=== PATIENT | male | born 1975 | race Caucasian/White ===

== ENCOUNTER 2017-05-08 00:51 | Inpatient (IN) | payer BC ==
[~2017-05-08] VITALS: Ht 180.3 cm; Wt 100.0 kg
[2017-05-08] VITALS (30 sets, daily range): BP systolic 86–113; BP diastolic 57–71; PULSE 53–76; RESP 14–28; TEMP 97.6; Ht 180.3 cm; Wt 100.0 kg
[2017-05-08] MEDS ORDERED: SOD CHLORIDE 0.9% 1,000 ML IV STA ×2 (01:11)
[2017-05-08] MEDS ORDERED: ONDANSETRON 4 MG INJ IV STA (01:20)
[2017-05-08] MEDS ORDERED: ONDANSETRON 4 MG INJ ONE (01:21)
[2017-05-08] MEDS ORDERED: HALOPERIDOL 5 MG INJ ONE (01:27)
[2017-05-08] MEDS ORDERED: LORAZEPAM 2 MG INJ ONE (01:27)
[2017-05-08] MEDS ORDERED: DIPHENHYDRAMINE 50 MG INJ ONE (01:27)
[2017-05-08] MEDS ORDERED: LORAZEPAM 2 MG INJ IV ONE ×3 (01:30→03:00)
[2017-05-08] MEDS ORDERED: OLANZAPINE 10 MG VIAL IM ONE (01:30)
--- NOTE | 2017-05-08 01:43 | ERD ---
ER Documentation Chief Complaint Date/Time DATE: 05/08/17 TIME: 01:42 Chief Complaint found down on sidewalk flailing, +ETOH, uncooperative w/ verbal comands HPI 41-year-old male brought in by police after he was found lying on the sidewalk uncooperative and belligerent. Patient smelled of alcohol. Patient does admit he is bipolar but is unable to provide any other history given his level of intoxication. ROS Limited secondary to clinical condition/intoxication Allergies Allergies: Coded Allergies: No Known Drug Allergies (Verified Allergy, Unknown, 05/08/17) PMhx/Soc Unable to obtain Hx Psychiatric Problems: Yes (Bipolar disorder) FmHx Family History: other (Unable to obtain) Physical Exam Vitals Vital Signs Date Time Temp Pulse Resp B/P Pulse Ox O2 Delivery O2 Flow Rate FiO2 05/08/17 06:00 97.3 98 16 105/82 100 Mechanical Ventilator 05/08/17 05:50 97 17 100 40 05/08/17 05:45 97.3 99 16 102/74 100 Mechanical Ventilator 05/08/17 05:30 97.3 101 16 105/66 100 Mechanical Ventilator 05/08/17 05:15 97.3 102 16 117/81 100 Mechanical Ventilator 05/08/17 05:10 101 15 100 50 05/08/17 05:00 97.3 101 16 122/88 100 Mechanical Ventilator 05/08/17 04:30 97.3 121 14 155/91 100 Mechanical Ventilator 05/08/17 04:15 97.3 117 14 135/99 100 Mechanical Ventilator 05/08/17 04:07 97.3 118 14 144/88 100 Mechanical Ventilator 05/08/17 03:55 120 14 130/93 100 Mechanical Ventilator 05/08/17 03:40 112 14 100 60 05/08/17 03:30 97.3 117 16 130/93 100 05/08/17 01:30 97.3 83 20 114/68 97 05/08/17 01:05 97.4 73 17 93/71 97 Physical Exam Const: Somnolent, flailing around in bed, belligerent, combative, disheveled Head: Atraumatic Eyes: Normal Conjunctiva, pupils mid size, PERRLA, EOMI ENT: Dry mucous membranes, poor dentition Neck: Full range of motion..~ No meningismus. Resp: Clear to auscultation bilaterally Cardio: Regular rate and rhythm, no murmurs Abd: Soft, non tender, non distended. Normal bowel sounds Skin: No petechiae or rashes Back: No midline or flank tenderness Ext: No cyanosis, or edema Neur: Somnolent, arousable, moving all extremities spontaneously, withdraws to pain in all 4 extremities, slurred speech Psych: Belligerent, agitated Result Diagram: 05/08/17 0130 05/08/17 0130 Results 24 hrs Laboratory Tests Test 05/08/17 01:30 05/08/17 02:55 White Blood Count 10.710^3/ul Red Blood Count 4.9910^6/ul Hemoglobin 15.6g/dl Hematocrit 46.0% Mean Corpuscular Volume 92.2fl Mean Corpuscular Hemoglobin 31.3pg Mean Corpuscular Hemoglobin Concent 33.9g/dl Red Cell Distribution Width 12.8% Platelet Count 35260^3/UL Mean Platelet Volume 10.0fl Neutrophils % 60.7% Lymphocytes % 27.4% Monocytes % 8.7% Eosinophils % 1.8% Basophils % 0.7% Nucleated Red Blood Cells % 0.0/100WBC Neutrophils # 6.510^3/ul Lymphocytes # 2.910^3/ul Monocytes # 0.910^3/ul Eosinophils # 0.210^3/ul Basophils # 0.110^3/ul Nucleated Red Blood Cells # 0.010^3/ul Sodium Level 145mmol/L Potassium Level 3.9mmol/L Chloride Level 104mmol/L Carbon Dioxide Level 21mmol/L Anion Gap 24 Blood Urea Nitrogen 5mg/dl Creatinine 0.93mg/dl Glucose Level 103mg/dl Calcium Level 9.1mg/dl Total Bilirubin 0.2mg/dl Direct Bilirubin 0.00mg/dl Indirect Bilirubin 0.2mg/dl Aspartate Amino Transf (AST/SGOT) 31IU/L Alanine Aminotransferase (ALT/SGPT) 41IU/L Alkaline Phosphatase 100IU/L Total Protein 7.6g/dl Albumin 4.9g/dl Globulin 2.70g/dl Albumin/Globulin Ratio 1.81 Ethyl Alcohol Level 241.0mg/dl Urine Color STRAW Urine Clarity CLEAR Urine pH 6.0 Urine Specific [place] 1.004 Urine Ketones NEGATIVEmg/dL Urine Nitrite NEGATIVEmg/dL Urine Bilirubin NEGATIVEmg/dL Urine Urobilinogen NEGATIVEmg/dL Urine Leukocyte Esterase NEGATIVELeu/ul Urine Hemoglobin NEGATIVEmg/dL Urine Glucose NEGATIVEmg/dL Urine Total Protein NEGATIVEmg/dl Urine Opiates Screen Negative Urine Barbiturates Negative Urine Amphetamines Screen Negative Urine Benzodiazepines Screen Negative Urine Cocaine Screen Negative Urine Cannabinoids Negative Current Medications Medications (Trade) Dose Ordered Sig/Yuliya Route PRN Reason Start Time Stop Time Status Last Admin Dose Admin Sodium Chloride 1,000 ml @ 1,000 mls/hr Q1H STAT IV 05/08/17 01:11 05/08/17 02:10 DC 05/08/17 01:36 Sodium Chloride (NS) 1,000 ml @ 1,000 mls/hr Q1H STAT IV 05/08/17 01:11 05/08/17 02:10 DC 05/08/17 01:36 Ondansetron HCl (Zofran Inj) 4 mg ONCE STAT IV 05/08/17 01:20 05/08/17 01:21 DC 05/08/17 01:35 Ondansetron HCl (Zofran Inj) 4 mg STK-MED ONCE .ROUTE 05/08/17 01:21 05/08/17 01:22 DC Diphenhydramine HCl (Benadryl) 50 mg STK-MED ONCE .ROUTE 05/08/17 01:27 05/08/17 01:28 DC Haloperidol (Haldol) 5 mg STK-MED ONCE .ROUTE 05/08/17 01:27 05/08/17 01:28 DC Lorazepam (Ativan) 2 mg STK-MED ONCE .ROUTE 05/08/17 01:27 05/08/17 01:28 DC Lorazepam (Ativan) 1 mg ONCE ONCE IV 05/08/17 01:30 05/08/17 01:31 DC 05/08/17 01:36 Olanzapine (Zyprexa) 10 mg ONCE ONCE IM 05/08/17 01:30 05/08/17 01:31 DC 05/08/17 01:51 Diphenhydramine HCl (Benadryl) 50 mg ONCE ONCE IV 05/08/17 03:00 05/08/17 03:01 DC 05/08/17 03:15 Lorazepam (Ativan) 1 mg ONCE ONCE IV 05/08/17 03:00 05/08/17 03:01 DC 05/08/17 03:15 Lorazepam (Ativan) 1 mg ONCE ONCE IV 05/08/17 03:00 05/08/17 03:01 DC 05/08/17 03:16 Ketamine HCl 200 mg 200 mg ONCE STAT IV 05/08/17 03:11 05/08/17 03:14 DC 05/08/17 03:50 Propofol 100 ml @ 0 mls/hr TITRATE ONCE IV 05/08/17 03:30 05/08/17 03:31 DC 05/08/17 03:51 Propofol 100 ml @ ud STK-MED ONCE .ROUTE 05/08/17 03:31 05/08/17 03:32 DC Dexmedetomidine HCl/Sodium Chloride (Precedex/NS) 50 ml @ 5 mls/hr TITRATE IV 05/08/17 05:30 05/08/17 05:58 Procedures/MDM Initiation of Seclusion/Restraint time of evaluation 0130 (correlate with nursing orders) This patient was placed in Seclusion/Restraint because: Danger to self, danger to others Less restrictive measures of verbal interventions/reminders, security standby, medications offered/given, nursing interventions based on Face to Face assessment findings, alteration to physical environment/reduce stimuli were attempted prior to restraint and/or seclusion. I performed a face to face assessment within one hour of the restraint/ seclusion at time 0230. Patients condition at assessment is: still agitated the restraints were continued. MDM Patients presented with altered mental status. Vitals were notable for borderline hypotension. 2 L IV fluid boluses were ordered. Patient maintaining airway. Based on EMS report and exam, patients AMS is likely related to alcohol or drug intoxication. I have a low suspicion for serious metabolic or electrolyte derangement, intracranial hemorrhage, acute infectious process, meningitis/encephalitis, or CVA. Multiple doses of Ativan were given with no improvement of his behavioral symptoms. He was also given Benadryl and Zyprexa. The patient remained consistently belligerent and a danger to himself despite being in restraints. He tried to chew his IV off. For the patient's own safety and for the safety of the staff, the patient was intubated and sedated. Propofol was started IV and maxed out with the patient still trying to pull at his medical equipment. Precedex was added. Patient will be admitted to the ICU. UDS is negative. I have a suspicion that the patient use some synthetic drugs in addition to alcohol. His labs are notable for likely metabolic acidosis due to lactic acidosis secondary to all his agitation and fighting. I have a low suspicion for sepsis. Critical Care Time: 45 minutes Treatments/Evaluations: Close monitoring and treatment of unstable vital signs, cardiorespiratory, and neurologic status, while maintaining tight balance of fluid, respiratory, and cardiac interventions. This time includes discussing the case with the patient and the patients family. This time does not include all procedures stated elsewhere in this record. This time also includes reviewing old records, labs and radiological studies. This time includes examining and re-examining the patient. Additionally, this time also includes arranging care with admitting and consulting physicians. Departure Diagnosis: Primary Impression: Alcoholic intoxication Complication of substance-induced condition: with unspecified complication Qualified Code: F10.129 - Alcoholic intoxication, with unspecified complication Additional Impression: Acute encephalopathy Condition: Serious ALEXANDER TORRES MD May 08, 2017 01:43
[2017-05-08 02:05] LABS: ADD SCAN DIFF NO
[2017-05-08 02:06] LABS: BASOPHIL # 0.1 10^3/ul (0.0-0.1); BASOPHILS % 0.7 % (0.0-2.0); EOSINOPHILS # 0.2 10^3/ul (0.0-0.5); EOSINOPHILS % 1.8 % (0.0-7.0); HEMOGLOBIN 15.6 g/dl (14.0-18.0); LYMPHOCYTES # 2.9 10^3/ul (0.8-2.9); LYMPHOCYTES % 27.4 % (15.0-51.0); MEAN CORPUSCULAR HEMOGLOBIN 31.3 pg (29.0-33.0); MEAN CORPUSCULAR HGB CONC 33.9 g/dl (32.0-37.0); MEAN CORPUSCULAR VOLUME 92.2 fl (82.0-101.0); MONOCYTE # 0.9 10^3/ul (0.3-0.9); MONOCYTES % 8.7 % (0.0-11.0); NEUTROPHIL # 6.5 10^3/ul (1.6-7.5); NEUTROPHILS % 60.7 % (39.0-77.0); PLATELET COUNT 230 10^3/UL (140-415); RED BLOOD COUNT 4.99 10^6/ul (4.70-6.10); RED CELL DISTRIBUTION WIDTH 12.8 % (11.5-14.5); WHITE BLOOD COUNT 10.7 10^3/ul (4.8-10.8)
[2017-05-08 02:26] LABS: ALBUMIN 4.9 g/dl (3.3-4.9); ALBUMIN/GLOBULIN RATIO 1.81; BILIRUBIN,INDIRECT 0.2 mg/dl (0-1.1); BILIRUBIN,TOTAL 0.2 mg/dl (0.2-1.3); CALCIUM 9.1 mg/dl (8.4-10.2); CREATININE 0.93 mg/dl (0.61-1.24); POTASSIUM 3.9 mmol/L (3.5-5.1); TOTAL PROTEIN 7.6 g/dl (6.1-8.1)
[2017-05-08] MEDS ORDERED: DIPHENHYDRAMINE 50 MG INJ IV ONE (03:00)
[2017-05-08] MEDS ORDERED: KETAMINE 500 MG INJ IV STA (03:11)
[2017-05-08 03:28] LABS: ADD UMIC NO; UR ASCORBIC ACID NEGATIVE (NEGATIVE); UR BILIRUBIN (Dip) NEGATIVE (NEGATIVE); UR BLOOD (Dip) NEGATIVE (NEGATIVE); UR CLARITY CLEAR (CLEAR); UR COLOR STRAW (YELLOW); UR GLUCOSE (Dip) NEGATIVE (NEGATIVE); UR KETONES (Dip) NEGATIVE (NEGATIVE); UR LEUKOCYTE ESTERASE (Dip) NEGATIVE Leu/ul (NEGATIVE); UR NITRITE (Dip) NEGATIVE (NEGATIVE); UR SPECIFIC GRAVITY (Dip) 1.004 (1.003-1.030); UR TOTAL PROTEIN (Dip) NEGATIVE (NEGATIVE); UR UROBILINOGEN (Dip) NEGATIVE (NEGATIVE)
[2017-05-08] MEDS ORDERED: PROPOFOL 100 ML IV ONE (03:30)
[2017-05-08] MEDS ORDERED: PROPOFOL 100 ML ONE (03:31)
[2017-05-08 03:59] LABS: BARBITURATES Negative (NEGATIVE); CANNABINOIDS Negative (NEGATIVE)
[2017-05-08 04:04] LABS: BENZODIAZEPINES Negative (NEGATIVE); COCAINE Negative (NEGATIVE); OPIATES Negative (NEGATIVE)
--- NOTE | 2017-05-08 05:05 | RADRPT ---
PROCEDURE: CT Brain without. CLINICAL INDICATION: Altered mental status TECHNIQUE: A CT of the brain was performed utilizing axial sections from the skull base through th e vertex without contrast. The scan was reviewed in soft tissue brain and high frequency resolution bone algorithm windows. Images were reviewed on a high-resolution PACS workstation. The exam CTDI = 44.68 mGy, and the DLP = 720.23 mGy-cm. One or more of the following dose reduction techniques w ere used: Automated exposure control, adjustment of the mA and / or kV according to patient size, o r use of iterative reconstruction technique. COMPARISON: None available FINDINGS: The ventricles are normal in size and midline in position. There is no intracranial hemorrhage, mid line shift, or mass effect. No abnormal extra-axial fluid collections are identified. The valdes-whi te differentiation is well preserved. The basal cisterns are patent. The posterior fossa is unrema rkable. The visualized portions of the orbits are unremarkable. The paranasal sinuses and mastoid air cells are clear. No calvarial fracture or abnormality are identified. The soft tissues are unremarkable . IMPRESSION: Unremarkable CT of the brain. RPTAT: HH .Marissa Kenny MD, MD Date Time Electronically viewed and signed by .Marissa Kenny MD, on 05/08/2017 05:04 .G/
--- NOTE | 2017-05-08 05:55 | RADRPT ---
PROCEDURE: XR Chest. CLINICAL INDICATION: Respiratory failure TECHNIQUE: Portable single view of the chest COMPARISON: None. FINDINGS: Endotracheal tube is seen in good position. There is mild cardiomegaly. Mild pulmonary vascular co ngestion is seen with slight probable interstitial edema. Left lower lobe atelectasis or infiltrate . No large effusion. No definite acute bony abnormality. IMPRESSION: Endotracheal tube in good position. Probable at least mild congestive heart failure. Left lower lo be infiltrate cannot be excluded. RPTAT: [facility] [place] Physician Date Time Electronically viewed and signed by [place] Physician on 05/08/2017 05:54 LE/
[2017-05-08] MEDS: DEXMEDETOMIDINE HCL 200 MCG in SOD CHLORIDE 0.9% 48 ML IV SCH ×2 (05:58→14:26)
[2017-05-08] MEDS ORDERED: ROCURONIUM 50 MG INJ ONE (07:00)
[2017-05-08] MEDS ORDERED: KETAMINE 500 MG INJ ONE (07:00)
[2017-05-08 07:12] LABS: AADO2 Arterial 135.4 mmHg (7.0-24.0); Allen Test ACCEPTAB; Arterial Base Excess -5.6 mmol/L (-3.0-3); Arterial COHb 1.8 % (0.0-3.0); Arterial Fraction of Oxyhgb 96.7 % (93.0-99.0); Arterial HCO3 20.7 mmol/L (22.0-26.0); Arterial MetHb 0.4 % (0.0-1.5); Arterial Total Hemglobin 16.7 g/dl (12.0-18.0); MODE VENT - AC
--- NOTE | 2017-05-08 07:29 | HP ---
Date/Time of Note Date/Time of Note DATE: 05/08/17 TIME: 07:15 Assessment/Plan VTE Prophylaxis VTE Prophylaxis Intervention: SCD's Assessment/Plan Assessment/Plan 41 yo M found on the street passed out and intubated for extreme agitation 1. Toxic encephalopathy : likely 2/2 a combination of multisubstance abuse including alcohol 2. Endotracheal intubation for airway protection 3. Hx of bipolar d/o 4. Incomplete history PLAN: ICU admit / vent mgt / pulm consult / NGT IVF / banana bag / sedation / once sedation weaning commences, start librium for withdrawal / PRN ativan PRN pain control/ antiemetics/ antipyretics/ supportive care further interventions per clinical course HPI/ROS Admit Date/Time Admit Date/Time 05/08/17 Hx of Present Illness PRESENTING COMPLAINT: altered mentation HISTORY OF PRESENTING COMPLAINT: This is a 41-year-old male per report who was found on the side of the street passed out and was brought to the emergency room by paramedics. However when he arrived in the emergency room he became very aggressive and combative, quite agitated and despite multiple medications could not be calmed down. The emergency room physician ended up having to intubate him and even despite sedation is still moving, and requiring restraints. He did have one episode of vomiting per report, but he was said not likely to have aspirated although this cannot be ruled out. No further history is obtainable. His urine tox screen was negative, but his alcohol levels were elevated, and patient likely took some other substance that is contributing to his severe aggressiveness and combativeness. ROS Subjective hx not possible: pt critical status PMH/Family/Social Past Medical History * Bipolar d/o per notes Medical History: other (unk) Past Surgical History Past Surgical Hx: other (unk) Social History Alcohol Use: heavy (unknown) Smoking Status: Unknown if ever smoked Drug Use: other Exam/Review of Systems Vital Signs Vitals Vital Signs Date Time Temp Pulse Resp B/P Pulse Ox O2 Delivery O2 Flow Rate FiO2 05/08/17 07:00 98.1 75 16 100/71 99 05/08/17 06:15 Mechanical Ventilator 05/08/17 05:50 40 Exam Constitutional: other (intubated and sedated), No alert, No oriented Head: normocephalic ENMT: intubated Respiratory: diminished breath sounds, No wheezing Cardiovascular: regular rate and rhythm Gastrointestinal: bowel sounds, distended (mildly), soft Extremities: No edema Neurological: other (sedated but still requiring restraints) Labs Result Diagram: 05/08/17 01305/08/17 013 Medications Medications Current Medications Dexmedetomidine HCl/Sodium Chloride (Precedex/NS) 50 ml @ 5 mls/hr TITRATE IV Last administered on 05/08/17t 05:58; Admin Dose 5 MLS/HR; Start 05/08/17 at 05:30 Procedures Procedures Laboratory Tests Test 05/08/17 01:30 05/08/17 02:55 05/08/17 05:17 White Blood Count 10.710^3/ul Red Blood Count 4.9910^6/ul Hemoglobin 15.6g/dl Hematocrit 46.0% Mean Corpuscular Volume 92.2fl Mean Corpuscular Hemoglobin 31.3pg Mean Corpuscular Hemoglobin Concent 33.9g/dl Red Cell Distribution Width 12.8% Platelet Count 74333^3/UL Mean Platelet Volume 10.0fl Neutrophils % 60.7% Lymphocytes % 27.4% Monocytes % 8.7% Eosinophils % 1.8% Basophils % 0.7% Nucleated Red Blood Cells % 0.0/100WBC Neutrophils # 6.510^3/ul Lymphocytes # 2.910^3/ul Monocytes # 0.910^3/ul Eosinophils # 0.210^3/ul Basophils # 0.110^3/ul Nucleated Red Blood Cells # 0.010^3/ul Sodium Level 145mmol/L Potassium Level 3.9mmol/L Chloride Level 104mmol/L Carbon Dioxide Level 21mmol/L Anion Gap 24 Blood Urea Nitrogen 5mg/dl Creatinine 0.93mg/dl Glucose Level 103mg/dl Calcium Level 9.1mg/dl Total Bilirubin 0.2mg/dl Direct Bilirubin 0.00mg/dl Indirect Bilirubin 0.2mg/dl Aspartate Amino Transf (AST/SGOT) 31IU/L Alanine Aminotransferase (ALT/SGPT) 41IU/L Alkaline Phosphatase 100IU/L Total Protein 7.6g/dl Albumin 4.9g/dl Globulin 2.70g/dl Albumin/Globulin Ratio 1.81 Ethyl Alcohol Level 241.0mg/dl Urine Color STRAW Urine Clarity CLEAR Urine pH 6.0 Urine Specific [place] 1.004 Urine Ketones NEGATIVEmg/dL Urine Nitrite NEGATIVEmg/dL Urine Bilirubin NEGATIVEmg/dL Urine Urobilinogen NEGATIVEmg/dL Urine Leukocyte Esterase NEGATIVELeu/ul Urine Hemoglobin NEGATIVEmg/dL Urine Glucose NEGATIVEmg/dL Urine Total Protein NEGATIVEmg/dl Urine Opiates Screen Negative Urine Barbiturates Negative Urine Amphetamines Screen Negative Urine Benzodiazepines Screen Negative Urine Cocaine Screen Negative Urine Cannabinoids Negative Blood Gas Specimen Source Blood arterial Arterial Blood Date Drawn 05/08/2017 5:23:32 AM Arterial Blood pH (Temp corrected) 7.299 Arterial Blood pCO2 (Temp correct) 43.2mmhg Arterial Blood pO2 (Temp corrected) 172.5mmHG Arterial Blood HCO3 20.7mmol/L Arterial Blood Base Excess -5.6mmol/L Arterial Blood Oxygen Saturation 98.9mmHG Brodie Test ACCEPTAB Arterial Blood Gas Puncture Site Right Radial Arterial Blood Carboxyhemoglobin 1.8% Arterial Blood Methemoglobin 0.4% Blood Gas A-a O2 Differential 135.4mmHg Oxyhemoglobin Percent 96.7% Total Hemoglobin 16.7g/dl Blood Gas Temperature 37.0C Blood Gas Respiration Rate 14.0 Blood Gas Actual Respiration Rate 15 Blood Gas Modality VENT - AC FiO2 50.0% Blood Gas Tidal Volume 550.0mL Blood Gas Low PEEP Setting 5.0cmH2O Blood Gas Inspiratory Pressure 18.0 Blood Gas Critical Value Read Back Agapito TORRES MD Blood Gas Notified Whom AA Blood Gas Notified Time 05/08/2017 5:38:23 AM ER INTERVENTIONS Medications (Trade) Dose Ordered Sig/Yuliya Route PRN Reason Start Time Stop Time Status Last Admin Dose Admin Sodium Chloride 1,000 ml @ 1,000 mls/hr Q1H STAT IV 05/08/17 01:11 05/08/17 02:10 DC 05/08/17 01:36 1,000 MLS/HR Sodium Chloride (NS) 1,000 ml @ 1,000 mls/hr Q1H STAT IV 05/08/17 01:11 05/08/17 02:10 DC 05/08/17 01:36 1,000 MLS/HR Ondansetron HCl (Zofran Inj) 4 mg ONCE STAT IV 05/08/17 01:20 05/08/17 01:21 DC 05/08/17 01:35 4 MG Ondansetron HCl (Zofran Inj) 4 mg STK-MED ONCE .ROUTE 05/08/17 01:21 05/08/17 01:22 DC Diphenhydramine HCl (Benadryl) 50 mg STK-MED ONCE .ROUTE 05/08/17 01:27 05/08/17 01:28 DC Haloperidol (Haldol) 5 mg STK-MED ONCE .ROUTE 05/08/17 01:27 05/08/17 01:28 DC Lorazepam (Ativan) 2 mg STK-MED ONCE .ROUTE 05/08/17 01:27 05/08/17 01:28 DC Lorazepam (Ativan) 1 mg ONCE ONCE IV 05/08/17 01:30 05/08/17 01:31 DC 05/08/17 01:36 1 MG Olanzapine (Zyprexa) 10 mg ONCE ONCE IM 05/08/17 01:30 05/08/17 01:31 DC 05/08/17 01:51 10 MG Diphenhydramine HCl (Benadryl) 50 mg ONCE ONCE IV 05/08/17 03:00 05/08/17 03:01 DC 05/08/17 03:15 50 MG Lorazepam (Ativan) 1 mg ONCE ONCE IV 05/08/17 03:00 05/08/17 03:01 DC 05/08/17 03:15 1 MG Lorazepam (Ativan) 1 mg ONCE ONCE IV 05/08/17 03:00 05/08/17 03:01 DC 05/08/17 03:16 1 MG Ketamine HCl 200 mg 200 mg ONCE STAT IV 05/08/17 03:11 05/08/17 03:14 DC 05/08/17 03:50 200 MG Propofol 100 ml @ 0 mls/hr TITRATE ONCE IV 05/08/17 03:30 05/08/17 03:31 DC 05/08/17 03:51 6 MLS/HR Propofol 100 ml @ ud STK-MED ONCE .ROUTE 05/08/17 03:31 05/08/17 03:32 DC Dexmedetomidine HCl/Sodium Chloride (Precedex/NS) 50 ml @ 5 mls/hr TITRATE IV 05/08/17 05:30 05/08/17 05:58 5 MLS/HR PROCEDURE: CT Brain without. CLINICAL INDICATION: Altered mental status TECHNIQUE: A CT of the brain was performed utilizing axial sections from the skull base through the vertex without contrast. The scan was reviewed in soft tissue brain and high frequency resolution bone algorithm windows. Images were reviewed on a high-resolution PACS workstation. The exam CTDI = 44.68 mGy, and the DLP = 720.23 mGy-cm. One or more of the following dose reduction techniques were used: Automated exposure control, adjustment of the mA and / or kV according to patient size, or use of iterative reconstruction technique. COMPARISON: None available FINDINGS: The ventricles are normal in size and midline in position. There is no intracranial hemorrhage, midline shift, or mass effect. No abnormal extra- axial fluid collections are identified. The valdes-white differentiation is well preserved. The basal cisterns are patent. The posterior fossa is unremarkable. The visualized portions of the orbits are unremarkable. The paranasal sinuses and mastoid air cells are clear. No calvarial fracture or abnormality are identified. The soft tissues are unremarkable. IMPRESSION: Unremarkable CT of the brain. RPTAT: HH .Marissa Kenny MD, MD Date Time Electronically viewed and signed by .Marissa Kenny MD, MD on 05/08/2017 05 :04 .G/ CC: ALEXANDER TORRES MD PROCEDURE: XR Chest. CLINICAL INDICATION: Respiratory failure TECHNIQUE: Portable single view of the chest COMPARISON: None. FINDINGS: Endotracheal tube is seen in good position. There is mild cardiomegaly. Mild pulmonary vascular congestion is seen with slight probable interstitial edema. Left lower lobe atelectasis or infiltrate. No large effusion. No definite acute bony abnormality. IMPRESSION: Endotracheal tube in good position. Probable at least mild congestive heart failure. Left lower lobe infiltrate cannot be excluded. RPTAT: [facility] [place], Physician Date Time Electronically viewed and signed by [place], Physician on 05/08/2017 05 :54 LE/ CC: ALEXANDER TORRES MD, BOLATITO M. May 08, 2017 07:26
[2017-05-08 08:35] LABS: INR 1.03; PARTIAL THROMBOPLASTIN TIME 28.7 Sec (25.0-35.0); PROTIME 13.5 Sec (12.2-14.2); PT RATIO 1.1
[2017-05-08 08:41] LABS: CREATINE KINASE 187 IU/L (23-200)
[2017-05-08 08:44] LABS: MAGNESIUM 1.7 mg/dl (1.7-2.5); PHOSPHORUS 3.5 mg/dl (2.5-4.9)
[2017-05-08 08:58] LABS: CK-MB 1.35 ng/ml (0.0-2.4); TROPONIN-I < 0.012 ng/ml (0.00-0.12)
[2017-05-08] MEDS: MULTIVITAMINS 10 ML, THIAMINE 100 MG, FOLIC ACID 1 MG in SOD CHLORIDE 0.9% 1,000 ML IVPB SCH (09:25)
[2017-05-08] MEDS: DEXTROSE 5%-0.45% NACL 1,000 ML IV SCH ×3 (09:52→23:30)
[2017-05-08] MEDS: FAMOTIDINE 20 MG INJ IV SCH ×2 (09:52→20:00)
[2017-05-08] MEDS ORDERED: NORepinephrine 8MG/250 ML (PMX 250 ML IV PRN (12:30)
--- NOTE | 2017-05-08 14:26 | RADRPT ---
Echocardiogram Report Patient Name: SUE ANGELES Gender: Male Date: 1975 Study Date: 08-May-2017 Retouching Operator: Rojelio Carvalho RDCS Location: [facility] Ref. Physician: SHANE VILLA Quality: Good Procedures: Transthoracic echocardiogram with complete 2D, M-Mode, and doppler examination. Indications: resp failure. 2D/M Mode Doppler Measurement Value Normal Ranges Measurement Value Normal Ranges LVIDd 2D 4.7 3.5 - 5.6 cm AV Peak Be 1.0 m/sec LVIDs 2D 2.9 2.1 - 4.1 cm AV Peak PG 4.0 mmHg FS 2D 39.0 % LVOT Peak Be 0.7 m/sec LVPWd 2D 0.9 0.6 - 1.1 cm LVOT Peak PG 2.0 mmHg IVSd 2D 0.9 0.6 - 1.1 cm MV E Peak Be 0.6 m/sec IVS/LVPW 2D 1.0 MV A Peak Be 0.4 m/sec AoR Diam 2D 3.2 2.0 - 3.7 cm MV E/A 1.4 LA/Ao 2D 1 0 - 1 MV Decel Time 271 msec EDV 2D 105.0 cm3 MV E/A 1.4 ESV 2D 23.9 cm3 TR Peak Be 2.3 m/sec LA Dimen 2D 3.3 2.3 - 4.0 cm TR Peak PG 21.0 mmHg RVSP 36.0 mmHg Findings Left Ventricle: Normal left ventricular systolic function. Normal left ventricular cavity size. Normal left ventricular wall thickness. Ejection fraction is visually estimated at 55 %. Right Ventricle: Normal right ventricular size. Normal right ventricular systolic function. Left Atrium: The left atrium is normal in size. Right Atrium: The right atrium is normal in size. Mitral Valve: Normal appearance and function of the mitral valve with trace physiologic regurgitation. Aortic Valve: Normal appearance of the aortic valve. No significant aortic stenosis or insufficiency. Tricuspid Valve: Normal appearance of the tricuspid valve. Estimated peak PA systolic pressure 36 mmHg. There is mild tricuspid regurgitation. Pulmonic Valve: Normal pulmonic valve appearance. Pericardium: Normal pericardium with no significant pericardial effusion. Aorta: Normal aortic root. IVC: Dilated IVC without respiratory collapse, however, patient on ventilator. Conclusions 1.Normal left ventricular systolic function. Normal left ventricular cavity size. Normal left ventricular wall thickness. Ejection fraction is visually estimated at 55 %. 2.Normal right ventricular size. Normal right ventricular systolic function. 3.The left atrium is normal in size. 4.The right atrium is normal in size. 5.Estimated peak PA systolic pressure 36 mmHg. There is mild tricuspid regurgitation. 6.No significant valvular stenosis or regurgitation seen of remaining visualized valves. 7.Normal pericardium with no significant pericardial effusion. Electronically Signed By: Yves Yates 08-May-2017 14:25:59 -0700 Patient Name: SUE ANGELES Study Date: 08-May-2017 [id number]
[2017-05-08 15:26] LABS: CREATINE KINASE 146 IU/L (23-200)
[2017-05-08 15:40] LABS: TROPONIN-I < 0.012 ng/ml (0.00-0.12)
[2017-05-08] MEDS: FENTAnyl (DRIP) 1000 mcg/100mL 100 ML IV SCH (16:53)
[2017-05-08] MEDS: PROPOFOL 100 ML IV SCH ×2 (16:53→21:18)
[2017-05-08] MEDS ORDERED: MAGNESIUM SULFATE 2 GM/50 ML 50 ML IVPB ONE (19:30)
[2017-05-08] MEDS: LORAZEPAM 2 MG INJ IV PRN (20:00)
[2017-05-09] VITALS (40 sets, daily range): BP systolic 86–137; BP diastolic 51–84; PULSE 62–114; RESP 12–30
[2017-05-09] MEDS: LORAZEPAM 2 MG INJ IV PRN ×3 (00:45→15:43)
[2017-05-09] MEDS: PROPOFOL 100 ML IV SCH ×4 (00:47→09:19)
[2017-05-09] MEDS ORDERED: MEPERIDINE 25 MG INJ IV ONE (01:00)
[2017-05-09 05:58] LABS: ADD SCAN DIFF NO
[2017-05-09 06:00] LABS: BASOPHILS % 0.3 % (0.0-2.0); EOSINOPHILS # 0.1 10^3/ul (0.0-0.5); EOSINOPHILS % 0.7 % (0.0-7.0); HEMATOCRIT 39.8 % (42.0-52.0); HEMOGLOBIN 13.1 g/dl (14.0-18.0); LYMPHOCYTES # 1.3 10^3/ul (0.8-2.9); LYMPHOCYTES % 12.5 % (15.0-51.0); MEAN CORPUSCULAR HGB CONC 32.9 g/dl (32.0-37.0); MEAN CORPUSCULAR VOLUME 94.3 fl (82.0-101.0); MEAN PLATELET VOLUME 9.4 fl (7.4-10.4); MONOCYTES % 9.6 % (0.0-11.0); NEUTROPHIL # 7.9 10^3/ul (1.6-7.5); NEUTROPHILS % 76.4 % (39.0-77.0); PLATELET COUNT 163 10^3/UL (140-415); RED BLOOD COUNT 4.22 10^6/ul (4.70-6.10); RED CELL DISTRIBUTION WIDTH 13.2 % (11.5-14.5); WHITE BLOOD COUNT 10.3 10^3/ul (4.8-10.8)
[2017-05-09] MEDS: FENTAnyl (DRIP) 1000 mcg/100mL 100 ML IV SCH (06:00)
[2017-05-09 06:28] LABS: CALCIUM 8.2 mg/dl (8.4-10.2); CREATININE 1.2 mg/dl (0.61-1.24); POTASSIUM 3.7 mmol/L (3.5-5.1)
--- NOTE | 2017-05-09 07:27 | RADRPT ---
PROCEDURE: XR Chest. CLINICAL INDICATION: Respiratory failure TECHNIQUE: An AP view of the chest was obtained. COMPARISON: Chest x-ray dated 05/08/2017 FINDINGS: The endotracheal tube tip is approximately 4.7 cm above the melina. The tip of the enteric tube ex tends below the left diaphragm. There are bibasilar interstitial opacities. No pleural effusion or pneumothorax is seen. The car diomediastinal silhouette is the normal limits for size. The osseous structures are unremarkable. IMPRESSION: 1. Bilateral basilar interstitial opacities may reflect atelectasis, pneumonia, and / or interstiti al edema. Findings are increased when compared to the prior examination. 2. Tubes and lines, as described above. RPTAT: HH .Marissa Kenny MD, Date Time Electronically viewed and signed by .Marissa Kenny MD, on 05/09/2017 07:27 .G/
[2017-05-09] MEDS: DEXTROSE 5%-0.45% NACL 1,000 ML IV SCH (07:36)
[2017-05-09 07:52] LABS: AADO2 Arterial 154.5 mmHg (7.0-24.0); Allen Test ACCEPTAB; Arterial Base Excess -0.9 mmol/L (-3.0-3); Arterial COHb 0.3 % (0.0-3.0); Arterial Fraction of Oxyhgb 96.3 % (93.0-99.0); Arterial HCO3 23.5 mmol/L (22.0-26.0); Arterial MetHb 0.4 % (0.0-1.5); Arterial Total Hemglobin 14.6 g/dl (12.0-18.0); MODE VENT - AC
[2017-05-09] MEDS: FAMOTIDINE 20 MG INJ IV SCH (09:19)
[2017-05-09 10:27] LABS: AADO2 Arterial 145.9 mmHg (7.0-24.0); Allen Test ACCEPTAB; Arterial Base Excess -2.1 mmol/L (-3.0-3); Arterial COHb 0.2 % (0.0-3.0); Arterial Fraction of Oxyhgb 94.3 % (93.0-99.0); Arterial HCO3 21.1 mmol/L (22.0-26.0); Arterial MetHb 0.3 % (0.0-1.5); Arterial Total Hemglobin 14.8 g/dl (12.0-18.0); Blood Gas PS 10; MODE VENT - CPAP
--- NOTE | 2017-05-09 12:17 | CONS ---
Date/Time of Note Date/Time of Note DATE: 05/09/17 TIME: 12:14 Assessment/Plan Assessment/Plan Chief Complaint/Hosp Course Assessment 1. Hypoxemic respiratory failure 2. Possible polysubstance abuse 3. History of bipolar disorder possible acute manic episode 4. Incomplete data Plan 1. CPAP weaning trial safely extubated 2. Aspiration precautions 3. Postextubation bronchodilators 4. Consider psychiatry evaluation 5. Continue with multivitamins folic acid and thiamine and consider coverage for possible alcohol withdrawal Problems: Consultation Date/Type/Reason Admit Date/Time 05/08/17 Date of Consultation: May 09, 2017 Type of Consultation: Pulmonary Reason for Consultation Respiratory failure Hx of Present Illness 41-year-old gentleman came in yesterday altered with history of possible polysubstance abuse. He was markedly agitated and then developed respiratory distress requiring emergent intubation mechanical ventilation. For further details are available. He does have a history of bipolar disorder. I this morning patient was awake alert on mechanical ventilation still somewhat agitated but no hemodynamic instability. Currently unable to perform Past Medical History Bipolar disorder Medical History: other (unk) Past Surgical History Past Surgical Hx: other (unk) Social History Alcohol Use: heavy (unknown) Smoking Status: Unknown if ever smoked Drug Use: other Exam/Review of Systems Vital Signs Vitals Vital Signs Date Time Temp Pulse Resp B/P Pulse Ox O2 Delivery O2 Flow Rate FiO2 05/09/17 09:33 78 14 100 40 05/09/17 08:00 98.5 137/64 Mechanical Ventilator Intake and Output 05/08/17 05/08/17 05/09/17 15:00 23:00 07:00 Intake Total 1593.5 ml 1175 ml Output Total 1600 ml 380 ml Balance -6.5 ml 795 ml Exam GENERAL: Well-nourished well-developed gentleman intubated on mechanical ventilation appears comfortable at rest VITAL SIGNS: per chart NECK: Supple. No JVD or lymphadenopathy. CARDIAC EXAM: S1, S2. No added sounds or murmurs. CHEST: clear bilaterally, No added sounds, rales or wheezes ABDOMEN: Soft, nontender. No guarding or rebound. EXTREMITIES: No cyanosis, clubbing or edema. NEUROLOGIC: Generalized weakness. No focal deficits. Results Result Diagram: 05/09/17 0530 05/09/17 0530 Results 24 hrs Laboratory Tests Test 05/08/17 14:15 05/09/17 05:00 05/09/17 05:30 05/09/17 10:10 Creatine Kinase 146 Creatine Kinase Index 0.7 Creatinine Kinase MB (Mass) 1.00 Troponin I < 0.012 Blood Gas Specimen Source Blood arterial Blood arterial Arterial Blood Date Drawn 05/09/2017 5:05:53 AM 05/09/2017 10:20:48 AM Arterial Blood pH (Temp corrected) 7.403 7.438 Arterial Blood pCO2 (Temp correct) 38.6 31.9 L Arterial Blood pO2 (Temp corrected) 86.3 66.6 L Arterial Blood HCO3 23.5 21.1 L Arterial Blood Base Excess -0.9 -2.1 Arterial Blood Oxygen Saturation 97.0 94.8 L Brodie Test ACCEPTAB ACCEPTAB Arterial Blood Gas Puncture Site Right Radial Right Radial Arterial Blood Carboxyhemoglobin 0.3 0.2 Arterial Blood Methemoglobin 0.4 0.3 Blood Gas A-a O2 Differential 154.5 H 145.9 H Oxyhemoglobin Percent 96.3 94.3 Total Hemoglobin 14.6 14.8 Blood Gas Temperature 37.0 37.0 Blood Gas Respiration Rate 16.0 Blood Gas Actual Respiration Rate 16 20 Blood Gas Modality VENT - AC VENT - CPAP FiO2 40.0 35.0 Blood Gas Inspiratory Time 0.90 Blood Gas Tidal Volume 550.0 Blood Gas Low PEEP Setting 5.0 Blood Gas Inspiratory Pressure 18.0 Blood Gas Notified Whom MG TM Blood Gas Notified Time 05/09/2017 5:19:06 AM 05/09/2017 10:27:24 AM White Blood Count 10.3 Red Blood Count 4.22 L Hemoglobin 13.1 L Hematocrit 39.8 L Mean Corpuscular Volume 94.3 Mean Corpuscular Hemoglobin 31.0 Mean Corpuscular Hemoglobin Concent 32.9 Red Cell Distribution Width 13.2 Platelet Count 163 # Mean Platelet Volume 9.4 Neutrophils % 76.4 Lymphocytes % 12.5 L Monocytes % 9.6 Eosinophils % 0.7 Basophils % 0.3 Nucleated Red Blood Cells % 0.0 Neutrophils # 7.9 H Lymphocytes # 1.3 Monocytes # 1.0 H Eosinophils # 0.1 Basophils # 0.0 Nucleated Red Blood Cells # 0.0 Sodium Level 143 Potassium Level 3.7 Chloride Level 111 H Carbon Dioxide Level 25 Anion Gap 11 # Blood Urea Nitrogen 6 L Creatinine 1.20 Glucose Level 94 Calcium Level 8.2 L Magnesium Level 2.0 Blood Gas High PEEP Setting 5.0 Blood Gas Pressure Support 10 Medications Medications Current Medications Multivitamins 10 ml/Thiamine HCl 100 mg/Folic Acid 1 mg/Sodium Chloride 1,011.2 ml @ 125 mls/ hr DAILY@09 IVPB Last administered on 05/08/17 09:25; Admin Dose 125 MLS/HR; Start 05/08/17 at 09:00 Dextrose/Sodium Chloride (D5-1/2ns) 1,000 ml @ 125 mls/hr Q8H IV Last administered on 05/09/17 07:36; Admin Dose 125 MLS/HR; Start 05/08/17 at 07:30 Lorazepam (Ativan) 2 mg Q4H PRN IV agitation Last administered on 05/09/17 06: 00; Admin Dose 2 MG; Start 05/08/17 at 07:30 Famotidine 20 mg 20 mg BID IV Last administered on 05/09/17 09:19; Admin Dose 20 MG; Start 05/08/17 at 09:00 Norepinephrine 16 mg/Dextrose 500 ml @ 0 mls/hr TITRATE IV ; Start 05/08/17 at 17 :00 Fentanyl 100 ml @ 2.5 mls/hr TITRATE IV Last administered on 05/09/17 06:00; Admin Dose 10 MLS/HR; Start 05/08/17 at 17:00 Propofol (Diprivan) 100 ml @ 3 mls/hr Q12H IV Last administered on 05/09/17 09: 19; Admin Dose 19.8 MLS/HR; Start 05/08/17 at 17:00 NITHIN PAIGE MD, [facility] May 09, 2017 12:16
--- NOTE | 2017-05-09 12:21 | PN ---
Date/Time of Note Date/Time of Note DATE: 05/09/17 TIME: 12:19 Assessment/Plan VTE Prophylaxis VTE Prophylaxis Intervention: SCD's Lines/Catheters IV Catheter Type (from [facility]): Peripheral IV Urinary Cath still in place: No Assessment/Plan Chief Complaint/Hosp Course 1. Toxic encephalopathy : likely 2/2 multisubstance abuse Ban[employer] bag 2. Acute respiratory failure secondary to toxic encephalopathy CPAP trials today 3. Hx of bipolar d/o Prophylaxis: SCDs Problems: Subjective 24 Hr Interval Summary Subjective hx not possible: pt non-verbal Exam/Review of Systems Vital Signs Vitals Vital Signs Date Time Temp Pulse Resp B/P Pulse Ox O2 Delivery O2 Flow Rate FiO2 05/09/17 09:33 78 14 100 40 05/09/17 08:00 98.5 137/64 Mechanical Ventilator Intake and Output 05/08/17 05/08/17 05/09/17 15:00 23:00 07:00 Intake Total 1593.5 ml 1175 ml Output Total 1600 ml 380 ml Balance -6.5 ml 795 ml Exam Constitutional: non-verbal Respiratory: clear to auscultation Cardiovascular: regular rate and rhythm Gastrointestinal: soft, No distended Musculoskeletal: nl extremities to inspection Results Result Diagram: 05/09/17 0530 05/09/17 0530 Results 24 hrs Laboratory Tests Test 05/08/17 14:15 05/09/17 05:00 05/09/17 05:30 05/09/17 10:10 Creatine Kinase 146 Creatine Kinase Index 0.7 Creatinine Kinase MB (Mass) 1.00 Troponin I < 0.012 Blood Gas Specimen Source Blood arterial Blood arterial Arterial Blood Date Drawn 05/09/2017 5:05:53 AM 05/09/2017 10:20:48 AM Arterial Blood pH (Temp corrected) 7.403 7.438 Arterial Blood pCO2 (Temp correct) 38.6 31.9 L Arterial Blood pO2 (Temp corrected) 86.3 66.6 L Arterial Blood HCO3 23.5 21.1 L Arterial Blood Base Excess -0.9 -2.1 Arterial Blood Oxygen Saturation 97.0 94.8 L Brodie Test ACCEPTAB ACCEPTAB Arterial Blood Gas Puncture Site Right Radial Right Radial Arterial Blood Carboxyhemoglobin 0.3 0.2 Arterial Blood Methemoglobin 0.4 0.3 Blood Gas A-a O2 Differential 154.5 H 145.9 H Oxyhemoglobin Percent 96.3 94.3 Total Hemoglobin 14.6 14.8 Blood Gas Temperature 37.0 37.0 Blood Gas Respiration Rate 16.0 Blood Gas Actual Respiration Rate 16 20 Blood Gas Modality VENT - AC VENT - CPAP FiO2 40.0 35.0 Blood Gas Inspiratory Time 0.90 Blood Gas Tidal Volume 550.0 Blood Gas Low PEEP Setting 5.0 Blood Gas Inspiratory Pressure 18.0 Blood Gas Notified Whom MG TM Blood Gas Notified Time 05/09/2017 5:19:06 AM 05/09/2017 10:27:24 AM White Blood Count 10.3 Red Blood Count 4.22 L Hemoglobin 13.1 L Hematocrit 39.8 L Mean Corpuscular Volume 94.3 Mean Corpuscular Hemoglobin 31.0 Mean Corpuscular Hemoglobin Concent 32.9 Red Cell Distribution Width 13.2 Platelet Count 163 # Mean Platelet Volume 9.4 Neutrophils % 76.4 Lymphocytes % 12.5 L Monocytes % 9.6 Eosinophils % 0.7 Basophils % 0.3 Nucleated Red Blood Cells % 0.0 Neutrophils # 7.9 H Lymphocytes # 1.3 Monocytes # 1.0 H Eosinophils # 0.1 Basophils # 0.0 Nucleated Red Blood Cells # 0.0 Sodium Level 143 Potassium Level 3.7 Chloride Level 111 H Carbon Dioxide Level 25 Anion Gap 11 # Blood Urea Nitrogen 6 L Creatinine 1.20 Glucose Level 94 Calcium Level 8.2 L Magnesium Level 2.0 Blood Gas High PEEP Setting 5.0 Blood Gas Pressure Support 10 Medications Medications Current Medications Multivitamins 10 ml/Thiamine HCl 100 mg/Folic Acid 1 mg/Sodium Chloride 1,011.2 ml @ 125 mls/ hr DAILY@09 IVPB Last administered on 05/08/17 09:25; Admin Dose 125 MLS/HR; Start 05/08/17 at 09:00 Dextrose/Sodium Chloride (D5-1/2ns) 1,000 ml @ 125 mls/hr Q8H IV Last administered on 05/09/17 07:36; Admin Dose 125 MLS/HR; Start 05/08/17 at 07:30 Lorazepam (Ativan) 2 mg Q4H PRN IV agitation Last administered on 05/09/17 06: 00; Admin Dose 2 MG; Start 05/08/17 at 07:30 Famotidine 20 mg 20 mg BID IV Last administered on 05/09/17 09:19; Admin Dose 20 MG; Start 05/08/17 at 09:00 Norepinephrine 16 mg/Dextrose 500 ml @ 0 mls/hr TITRATE IV ; Start 05/08/17 at 17 :00 Fentanyl 100 ml @ 2.5 mls/hr TITRATE IV Last administered on 05/09/17 06:00; Admin Dose 10 MLS/HR; Start 05/08/17 at 17:00 Propofol (Diprivan) 100 ml @ 3 mls/hr Q12H IV Last administered on 05/09/17 09: 19; Admin Dose 19.8 MLS/HR; Start 05/08/17 at 17:00 DYLAN BOLIVAR May 09, 2017 12:21
[2017-05-09] MEDS: MULTIVITAMINS 10 ML, THIAMINE 100 MG, FOLIC ACID 1 MG in SOD CHLORIDE 0.9% 1,000 ML IVPB SCH (13:07)
[2017-05-09] MEDS ORDERED: ALBUTEROL/IPRATROPIUM (NEB) 3 ML AMP HHN SCH (14:00)
[2017-05-09] MEDS ORDERED: LORAZEPAM 2 MG INJ IV PRN (16:00)
--- NOTE | 2017-05-09 17:36 | PDOCDIS ---
Discharge Instructions CONDITION Patient Condition: Fair HOME CARE INSTRUCTIONS: Diet Instructions: Regular ACTIVITY: Activity Restrictions: No Restrictions FOLLOW UP/APPOINTMENTS Follow-up Plan F/U WITH [facility]CP DYLAN BOLIVAR May 09, 2017 17:35
[2017-05-09] MEDS ORDERED: GABAPENTIN 400 MG CAP PO SCH (21:00)
[2017-05-09] MEDS ORDERED: PRAMIPEXOLE 0.25 MG TAB PO SCH (21:00)
[2017-05-09] MEDS ORDERED: LITHIUM CARBONATE 300 MG CAP PO SCH (21:00)
[2017-05-09] MEDS ORDERED: QUETIAPINE 25 MG TAB PO SCH (21:00)
--- NOTE | 2017-05-10 14:22 | DS ---
Date/Time of Note Date/Time of Note DATE: 05/10/17 TIME: 14:20 Discharge Summary Admission/Discharge Info Admit Date/Time May 08, 2017 at 07:19 Discharge Date/Time May 09, 2017 at 19:10 Discharge Diagnosis 1. Toxic encephalopathy : likely 2/2 multisubstance abuse-improved Patient discharged to a drug rehab under 2. Acute respiratory failure secondary to toxic encephalopathy-resolved 3. Hx of bipolar d/o Patient Condition: Good Hospital Course She is a 41-year-old male with a history of bipolar disorder patient presents with altered mental status and was intubated for airway protection. Patient's U tox positive only for alcohol, patient was ultimately extubated the patient renal social worker stated that she is going to put him in a drug and alcohol rehab program and patient was picked up by his renal social worker we took him directly to a rehab program. On the day of discharge patient's vitals labs physical exam were stable. Home Meds Unable to Obtain Active Prescriptions or Reported Meds Follow-up Plan Follow-up with drug and alcohol rehab program and PCP Primary Care Provider Care Physician No Primary Time spent on discharge: > 30 minutes DYLAN BOLIVAR May 10, 2017 14:22
== END 2017-05-09 19:10 | disposition home or self-care (01) | DRG 917 ==
LOC: E/R 00:51 → ICU 07:19
PROVIDERS: ADMIT Family Medicine; ATTEND Family Medicine
PROC: 0BH17EZ Insertion of Endotracheal Airway into Trachea, Via Natural or Artificial Opening (ICD-10-PCS; principal; 2017-05-08)
PROC: 5A1935Z Respiratory Ventilation, Less than 24 Consecutive Hours (ICD-10-PCS; 2017-05-08)
DX: T51.0X1A Toxic effect of ethanol, accidental (unintentional), initial encounter (principal); G92 Toxic encephalopathy; J96.01 Acute respiratory failure with hypoxia; F30.9 Manic episode, unspecified; Z78.1 Physical restraint status; I95.9 Hypotension, unspecified; F10.129 Alcohol abuse with intoxication, unspecified; F19.129 Other psychoactive substance abuse with intoxication, unspecified; R45.1 Restlessness and agitation
CPT/HCPCS: 31500; 36415; 36600; 70450; 71010; 80048; 80053; 80306; 80307; 81003; 82550; 82553; 82803; 83605; 83735; 84100; 84484; 85025; 85610; 85730; 87081; 93306; 94002; 94003; 94664; 94770; 96372; 96374; 96375; 96376; J1200; J1630; J2060; J2405; J3010; J3411; J3475; J7030; J7042